=== PATIENT | female | born 1965 | race Caucasian/White ===

== ENCOUNTER 2017-01-05 21:04 | Emergency (ER) | payer OTHER ==
[~2017-01-05 21:04] MED LIST: ATIVAN0.5 MG PO; IBUPROFEN200 M1 PO; TOPROL XL50 MG PO
--- NOTE | 2017-01-05 22:03 | ED CLINICAL REPORT ---
Clinical Report - Physicians/Mid Levels [facility] [address] [place] [address] 01/05/2017 21:06 Patient: MIKEL ELIZALDE Time Seen: 21:52; initial patient contact, initial documentation, patient care assumed. Arrived- By private vehicle. Historian- patient. HISTORY OF PRESENT ILLNESS Chief Complaint: BACK PAIN and CHRONIC BACK PAIN. It is described as being severe and in the area of the right mid lumbar spine, right lower lumbar spine and right SI joint and radiating to the right hip and thigh. The quality is noted to be "pain" and similar to prior episodes. Onset- about 5 days ago and it is still present. Modifying factors- worsened by walking, rotation of the body to the right or left, bending over or lifting. Not relieved by anything. Additional history - has appt with pcp saturday completed pt about x2 mos ago. Patient denies an injury but injury to the head. No other injury. Similar symptoms previously: Chronically, as bad. REVIEW OF SYSTEMS No fever, difficulty with urination, urinary frequency, hematuria or difficulty breathing. No chest pain or abdominal pain. All systems otherwise negative, except as recorded above. PAST HISTORY See nurses notes. PROBLEMS: Chest Pain. Intervertebral Disc Disease. Back Pain. UTI - Urinary Tract Infection. --21:32 Lisbet Santana R.N. ADDITIONAL SURGERIES: Cholecystectomy. --21:32 Lisbet Santana R.N. SOCIAL HISTORY Never smoker. No alcohol use or drug use. No recent travel. Is a local resident. FAMILY HISTORY Negative. ADDITIONAL NOTES The nursing notes have been reviewed with agreement regarding the chief complaint, HPI, ROS, PMH and patient medications and allergies. PHYSICAL EXAM Vital Signs: 01/05/2017 21:28 BP: 131/72. HR: 83. RR: 18. O2 saturation: 97%. Temp: 98.2 F. Pain level now: 9/10. Have been reviewed as normal and appear to be correct. Appearance: Alert. No acute distress. HEENT: Normal external inspection. Eyes: Pupils equal, round and reactive to light. Neck: Normal inspection. Neck nontender. Painless ROM. CVS: Heart sounds normal. Pulses normal. Respiratory: No respiratory distress. Breath sounds normal. Abdomen: No visible injury. Soft and nontender. Back: Abnormal inspection. Back tenderness present. Mild soft tissue tenderness in the right mid and lower lumbar area. No painless ROM. Limited ROM in the back- in the lumbar spine: decreased flexion, right lateral bending, left lateral bending and rotation to the right and left. No limitation in extension of lumbar spine. No muscle spasm in the back, vertebral point tenderness or CVA tenderness. Skin: Skin warm and dry. Normal skin color. No rash. Normal skin turgor. Extremities: Extremities exhibit normal ROM. Extremities nontender. Neuro: Oriented X 3. Mood/affect normal. No motor deficit. No sensory deficit. LABS, X-RAYS, AND EKG Laboratory Tests: Normal. UA-Culture if indicated: (AYAD: 01/05/2017 21:20) ( MsgRcvd 01/05/2017 21:53) Final results Test Result Flag Units (Reference) URINE COLOR YELLOW URINE APPEARANCE CLEAR URINE GLUCOSE NEGATIVE (NEGATIVE) URINE BILIRUBIN NEGATIVE (NEGATIVE) URINE KETONE NEGATIVE (NEGATIVE) URINE SPECIFIC GRAVITY <= 1.005 L (1.010-1.030) URINE PH 6.0 (5.0-8.0) URINE PROTEIN NEGATIVE (NEGATIVE) URINE UROBILINOGEN 0.2 EU/dL (0.2-1.0) URINE NITRITE NEGATIVE (NEGATIVE) URINE BLOOD TRACE-INTACT (NEGATIVE) URINE LEUK ESTERASE NEGATIVE (NEGATIVE) URINE RBC 0-1 rbc/hpf (0-1) URINE WBC 0-1 wbc/hpf (0-1) URINE EPITHELIAL CELLS 10-15 EPI/hpf (0-5) URINE BACTERIA NONE SEEN (NONE SEEN) URINE COMMENT CULT NOT INDICATED URINE CULTURES ARE SET-UP BASED ON THE FOLLOWING CRITERIA:POSITIVE NITRITEPOSITIVE LEUKOCYTE ESTERASEGREATER THAN 10 WHITE BLOOD CELLSMODERATE (2+) OR GREATER BACTERIA . PROGRESS AND PROCEDURES Patient and spouse counseled in person regarding the patient's stable condition, test results, normal exam and diagnosis. 22:03. Differential Diagnosis: I considered Musculo-skeletal strain, retroperitoneal hematoma, disk protrusion, vertebral fracture, facet syndrome, sacroiliac joint strain, sciatica, osteoarthritis, lumbar spondylosis, spinal stenosis, ankylosing spondylitis, sacroiliac joint inflammation, pyelonephritis, meningioma, lymphoma, abdominal aortic aneurysm and ureterolithiasis as a possible cause of back pain in this patient. This is a partial list of diagnoses considered. Above considerations are based on history and physical exam. Differential diagnosis was discussed with patient and patient's spouse. Disposition: Discharged home in good and improved condition (22:03). Condition: good and stable. CLINICAL IMPRESSION Chronic nontraumatic lumbar back pain. Sciatica present on the right. No neurological deficit. INSTRUCTIONS Warnings: GENERAL WARNINGS: Return or contact your physician immediately if your condition worsens or changes unexpectedly, if not improving as expected, or if other problems arise. SPECIFICALLY, return if you develop numbness or incontinence of feces (loss of bowel control) or urine (loss of bladder control). Prescription Medications: Flexeril 10 mg: Take 1 orally every 8 hours as needed for muscle spasm. Dispense twenty (20). No refills. Substitution is permissible. Ultram 50 mg tablets: take 1-2 orally every 6 hours as needed for pain. Dispense twenty (20). No refills. Substitution is permissible. Follow-up: Follow up with your doctor Saturday as scheduled even if well. Summary of care provided to patient. Understanding of the discharge instructions verbalized by patient. (Electronically signed by Guerda Callejas A.R.N.P. 01/05/2017 22:22)
--- NOTE | 2017-01-05 22:03 | ED NURSING NOTES ---
Clinical Report - Nurses [facility] [address] [place] [address] 01/05/2017 21:06 Patient: MIKEL ELIZALDE TRIAGE Triage time 2118. Acuity: LEVEL 4. Chief Complaint: BACK PAIN and (has hx of sciatic pain, was in PT 6 months ago for it, was ok until 5 days ago). --21:32 Lisbet Santana R.N. 21:28 01/05/17. BP: 131/72. HR: 83. RR: 18. O2 saturation: 97% on room air. Temp: 98.2 F. Pain level now: 07/28. --21:32 Lisbet Santana R.N. Weight: 55.7 kg stated. Height/Length: 60 inches Per Patient. BMI: 24. --21:31 Lisbet Santana R.N. Medications None. --21:29 Lisbet Santana R.N. Allergies No Known Drug Allergy. --21:29 Lisbet Santana R.N. History Arrived by private vehicle. Historian: patient. Accompanied by spouse. --21:28 Lisbet Santana R.N. Arrived by private vehicle. Historian: patient. Accompanied by spouse. Primary physician ([facility]). Onset. (, but much worse since 1699 today. has appt with PCP on Saturday but "just can't wait that long"). She has had trouble walking. She has had extremity pain (rt leg). PAST MEDICAL HX: Last normal menstrual period- 10/09 kae menopausal. SOCIAL HX: Never smoker. No alcohol use or drug use. --21:32 Lisbet Santana R.N. ( has hx of sciatic pain). --21:33 Lisbet Santana R.N. PROBLEMS: Chest Pain. Intervertebral Disc Disease. Back Pain. UTI - Urinary Tract Infection. --21:32 Lisbet Santana R.N. ADDITIONAL SURGERIES: Cholecystectomy. --21:32 Lisbet Santana R.N. Interventions ID band on patient. To treatment room. --21:32 Lisbet Santana R.N. PHYSICAL ASSESSMENT 21:28. Ambulatory to room. Patient gowned. GENERAL / NEURO / PSYCH: Alert. Oriented X 4. Appears in pain. ( walking slowly and bent over). RESPIRATORY: Respirations not labored. CVS: Capillary refill less than 2 seconds. GI / : Abdomen soft. BACK: Limited ROM of the back. Soft tissue tenderness. --22:19 Lisbet Santana R.N. NURSING PROGRESS NOTES 21:22 01/05/17. Patient gowned. Head of bed elevated. Reassurance given. Patient identifiers checked. Call light placed in reach. Side rails up. Bed placed in lowest position. Patient ready for evaluation- chart flagged. --21: Lisbet Santana R.N. 21:24 01/05/17. Patient ID band checked for patient name and birthdate: patient confirmed. Clean catch urine collected with return of yellow-colored cloudy urine; sample sent to lab for urinalysis and culture. Specimen labeled in the presence of the patient. --21:25 Lisbet Santana R.N. 22:05 01/05/2017 Toradol (Ketorolac Tromethamine) IM 30 mg given. Given in the right ventral gluteus. --22:18 Lisbet Santana R.N. DISPOSITION / DISCHARGE 22:01/05/17. Condition at departure: unchanged and stable. No learning barriers present. Discharge instructions provided and reviewed with the patient and spouse. Reviewed medication(s) (flexeril, ultram). Patient and spouse verbalized understanding. Written instructions provided in Thai. The patient was discharged home and accompanied by spouse. She left the Emergency Department in a wheelchair and via private vehicle. Spouse driving. --22: Lisbet Santana R.N. 22:15 01/05/17. BP: 128/78. HR: 84. RR: 18. O2 saturation: 99% on room air. Temp: deferred. Pain level now: 9/10. Additional comments: pt opted to leave before meds took effect. --22:17 Lisbet Santana R.N. Locked/Released at 01/15/2017 9:00 by Ema Pardo R.N.
--- NOTE | 2017-01-05 22:03 | ED ORDER SUMMARY ---
..... Patient: MIKEL ELIZALDE OrderSheet [facility] VisitID: [id number] [address] [place] [address] 51y, F Registration Date/Time: 01/05/2017 ORDER SHEET Weight: 55.7 kg (stated) Allergies: No Known Drug Allergy GENERAL ORDERS: UA-Culture if indicated Urgent (21:41 01/05/2017 DDean R.N. per protocol) (Ack 21:43 Radha) (21:57 DDean R.N.) MEDICATION ORDERS: Toradol IM 60 mg (NOW) (22:01 01/05/2017 HBivens A.R.N.P.) (Ack 22:03 DDean R.N.) (22:18 DDean R.N.) IV FLUIDS: ORDER SHEET NOTES: [Electronically signed by Guerda Callejas A.R.N.P. (22:22 01/05/2017)] [Electronically signed by Ema Pardo R.N. (09:00 01/15/2017)] [Electronically locked/signed by Ema Pardo R.N. (09:00 01/15/2017)]
--- NOTE | 2017-01-05 22:03 | ED NURSING NOTES ---
Clinical Report - Nurses [facility] [address] [place] [address] 01/05/2017 21:06 Patient: MIKEL ELIZALDE TRIAGE Triage time 2118. Acuity: LEVEL 4. Chief Complaint: BACK PAIN and (has hx of sciatic pain, was in PT 6 months ago for it, was ok until 5 days ago). --21:32 Lisbet Santana R.N. 21:28 01/05/17. BP: 131/72. HR: 83. RR: 18. O2 saturation: 97% on room air. Temp: 98.2 F. Pain level now: 07/28. --21:32 Lisbet Santana R.N. Weight: 55.7 kg stated. Height/Length: 60 inches Per Patient. BMI: 24. --21:31 Lisbet Santana R.N. Medications None. --21:29 Lisbet Santana R.N. Allergies No Known Drug Allergy. --21:29 Lisbet Santana R.N. History Arrived by private vehicle. Historian: patient. Accompanied by spouse. --21:28 Lisbet Santana R.N. Arrived by private vehicle. Historian: patient. Accompanied by spouse. Primary physician ([facility]). Onset. (, but much worse since 1699 today. has appt with PCP on Saturday but "just can't wait that long"). She has had trouble walking. She has had extremity pain (rt leg). PAST MEDICAL HX: Last normal menstrual period- 10/09 kae menopausal. SOCIAL HX: Never smoker. No alcohol use or drug use. --21:32 Lisbet Santana R.N. ( has hx of sciatic pain). --21:33 Lisbet Santana R.N. PROBLEMS: Chest Pain. Intervertebral Disc Disease. Back Pain. UTI - Urinary Tract Infection. --21:32 Lisbet Santana R.N. ADDITIONAL SURGERIES: Cholecystectomy. --21:32 Lisbet Santana R.N. Interventions ID band on patient. To treatment room. --21:32 Lisbet Santana R.N. PHYSICAL ASSESSMENT 21:28. Ambulatory to room. Patient gowned. GENERAL / NEURO / PSYCH: Alert. Oriented X 4. Appears in pain. ( walking slowly and bent over). RESPIRATORY: Respirations not labored. CVS: Capillary refill less than 2 seconds. GI / : Abdomen soft. BACK: Limited ROM of the back. Soft tissue tenderness. --22:19 Lisbet Santana R.N. NURSING PROGRESS NOTES 21:22 01/05/17. Patient gowned. Head of bed elevated. Reassurance given. Patient identifiers checked. Call light placed in reach. Side rails up. Bed placed in lowest position. Patient ready for evaluation- chart flagged. --21: Lisbet Santana R.N. 21:24 01/05/17. Patient ID band checked for patient name and birthdate: patient confirmed. Clean catch urine collected with return of yellow-colored cloudy urine; sample sent to lab for urinalysis and culture. Specimen labeled in the presence of the patient. --21:25 Lisbet Santana R.N. 22:05 01/05/2017 Toradol (Ketorolac Tromethamine) IM 30 mg given. Given in the right ventral gluteus. --22:18 Lisbet Santana R.N. DISPOSITION / DISCHARGE 22:01/05/17. Condition at departure: unchanged and stable. No learning barriers present. Discharge instructions provided and reviewed with the patient and spouse. Reviewed medication(s) (flexeril, ultram). Patient and spouse verbalized understanding. Written instructions provided in Ukrainian. The patient was discharged home and accompanied by spouse. She left the Emergency Department in a wheelchair and via private vehicle. Spouse driving. --22: Lisbet Santana R.N. 22:15 01/05/17. BP: 128/78. HR: 84. RR: 18. O2 saturation: 99% on room air. Temp: deferred. Pain level now: 9/10. Additional comments: pt opted to leave before meds took effect. --22:17 Lisbet Santana R.N. Locked/Released at 01/15/2017 9:00 by Ema Pardo R.N.
--- NOTE | 2017-01-05 22:03 | ED ORDER SUMMARY ---
..... Patient: MIKEL ELIZALDE OrderSheet [facility] VisitID: [id number] [address] [place] [address] 51y, F Registration Date/Time: 01/05/2017 ORDER SHEET Weight: 55.7 kg (stated) Allergies: No Known Drug Allergy GENERAL ORDERS: UA-Culture if indicated Urgent (21:41 01/05/2017 DDean R.N. per protocol) (Ack 21:43 Radha) (21:57 DDean R.N.) MEDICATION ORDERS: Toradol IM 60 mg (NOW) (22:01 01/05/2017 HBivens A.R.N.P.) (Ack 22:03 DDean R.N.) (22:18 DDean R.N.) IV FLUIDS: ORDER SHEET NOTES: [Electronically signed by Guerda Callejas A.R.N.P. (22:22 01/05/2017)] [Electronically signed by Ema Pardo R.N. (09:00 01/15/2017)] [Electronically locked/signed by Ema Pardo R.N. (09:00 01/15/2017)]
--- NOTE | 2017-01-15 09:00 | ED MAR SUMMARY ---
..... Medication Administration Record [facility] [address] [place] [address] Patient: MIKEL ELIZALDE Visit ID: [id number] 51y, F Weight: 55.7 kg Height/Length: 60 in BMI: 24 ALLERGIES: No Known Drug Allergy Given 22:05 01/05/2017 MaxLisbet R.N. Medication Administered: TORADOL [IM] (KETOROLAC TROMETHAMINE), Dose: 30 mg IM. Medication Ordered: Toradol IM 60 mg (NOW).
--- NOTE | 2017-01-15 09:00 | ED MED RECONCILIATION SUMMARY ---
Patient: MIKEL ELIZALDE Medication Reconciliation Report [facility] VisitID: [id number] [address] [place] [address] 51y, F Registration Date/Time: 01/05/2017 Weight: 55.7 kg Height/Length: 60 in. BMI: 24.0 ALLERGIES: No Known Drug Allergy The patient's Home Medications are listed below: NONE. The source(s) of the original Home Medication information: Not obtained. The following Medications were given to the patient in the Emergency Department: Toradol [IM] IM 30 mg, administered: 01/05/2017 10:05:00 PM The following Medications were prescribed to the patient: Flexeril 10 mg: Take 1 orally every 8 hours as needed for muscle spasm. Dispense twenty (20). No refills. Substitution is permissible. -- Guerda Callejas, A.R.N.P. Ultram 50 mg tablets: take 1-2 orally every 6 hours as needed for pain. Dispense twenty (20). No refills. Substitution is permissible. -- Guerda Callejas, A.R.N.P.
--- NOTE | 2017-01-15 09:00 | ED DISCHARGE INSTRUCTIONS ---
Patient: MIKEL ELIZALDE General Instructions [facility] VisitID: [id number] [address] [place] [address] 51y, F Registration Date/Time: 01/05/2017 Chronic nontraumatic lumbar back pain. Sciatica present on the right. No neurological deficit. INSTRUCTIONS Warnings: GENERAL WARNINGS: Return or contact your physician immediately if your condition worsens or changes unexpectedly, if not improving as expected, or if other problems arise. SPECIFICALLY, return if you develop numbness or incontinence of feces (loss of bowel control) or urine (loss of bladder control). Prescription Medications: Flexeril 10 mg: Take 1 orally every 8 hours as needed for muscle spasm. Dispense twenty (20). No refills. Substitution is permissible. Ultram 50 mg tablets: take 1-2 orally every 6 hours as needed for pain. Dispense twenty (20). No refills. Substitution is permissible. Follow-up: Follow up with your doctor Saturday as scheduled even if well. Summary of care provided to patient. Understanding of the discharge instructions verbalized by patient. ADDITIONAL INFORMATION Back Pain [Acute Or Chronic] Back pain is usually caused by an injury to the muscles or ligaments of the spine. Sometimes the disks that separate each bone in the spine may bulge and cause pain by pressing on a nearby nerve. Back pain may also appear after a sudden twisting/bending force (such as in a car accident), after a simple awkward movement, or lifting something heavy with poor body positioning. In either case, muscle spasm is often present and adds to the pain. Acute back pain usually gets better in one to two weeks. Back pain related to disk disease, arthritis in the spinal joints or spinal stenosis (narrowing of the spinal canal) can become chronic and last for months or years. Unless you had a physical injury (for example, a car accident or fall) X-rays are usually not ordered for the initial evaluation of back pain. If pain continues and does not respond to medical treatment, x-rays and other tests may be performed at a later time. Home Care: You may need to stay in bed the first few days. But, as soon as possible, begin sitting or walking to avoid problems with prolonged bed rest (muscle weakness, worsening back stiffness and pain, blood clots in the legs). When in bed, try to find a position of comfort. A firm mattress is best. Try lying flat on your back with pillows under your knees. You can also try lying on your side with your knees bent up towards your chest and a pillow between your knees. Avoid prolonged sitting. This puts more stress on the lower back than standing or walking. During the first two days after injury, apply an ICE PACK to the painful area for 20 minutes every 2-4 hours. This will reduce swelling and pain. HEAT (hot shower, hot bath or heating pad) works well for muscle spasm. You can start with ice, then switch to heat after two days. Some patients feel best alternating ice and heat treatments. Use the one method that feels the best to you. You may use acetaminophen (Tylenol) or ibuprofen (Motrin, Advil) to control pain, unless another pain medicine was prescribed. [NOTE: If you have chronic liver or kidney disease or ever had a stomach ulcer or GI bleeding, talk with your doctor before using these medicines.] Be aware of safe lifting methods and do not lift anything over 15 pounds until all the pain is gone. Follow Up with your doctor or this facility if your symptoms do not start to improve after one week. Physical therapy may be needed. [NOTE: If X-rays were taken, they will be reviewed by a radiologist. You will be notified of any new findings that may affect your care.] Get Prompt Medical Attention if any of the following occur: Pain becomes worse or spreads to your legs Weakness or numbness in one or both legs Loss of bowel or bladder control Numbness in the groin or genital area Sciatica Sciatica ("Lumbar Radiculopathy") causes a pain that spreads from the lower back down into the buttock, hip and leg. Sometimes leg pain can occur without any back pain. Sciatica is due to irritation or pressure on a spinal nerve as it comes out of the spinal canal. This is most often due to a bulge or rupture of a nearby spinal disk (the cartilage cushion between each spinal bone), which presses on a nearby nerve. Other causes include spinal stenosis (narrowing of the spinal canal) and spasm of the pyriform muscle (a muscle in the buttocks that the sciatic nerve passes through). Sciatica may begin after a sudden twisting/bending force (such as in a car accident), or sometimes after a simple awkward movement. In either case, muscle spasm is commonly present and contributes to the pain. The diagnosis of sciatica is made from the symptoms and physical exam. Unless you had a physical injury (such as a car accident or fall), X-rays are usually not ordered for the initial evaluation of sciatica because the nerves and disks cannot be seen on an x-ray. If signs of a compressed nerve are present (for example, loss of tendon reflex or strength in the leg), an MRI (magnetic resonance imaging) scan will need to be scheduled as an outpatient. Most sciatica (80-90%) gets better with medicine, exercise, physical therapy. If symptoms continue after at least three months of medical treatment, surgery may be considered. Home Care: You may need to stay in bed the first few days. But, as soon as possible, begin sitting or walking to avoid problems with prolonged bed rest. When in bed, try to find a position of comfort. A firm mattress is best. Try lying flat on your back with pillows under your knees. You can also try lying on your side with your knees bent up towards your chest and a pillow between your knees. Avoid prolonged sitting. This puts more stress on the lower back than standing or walking. Some persons find relief with heat (hot shower, hot bath or heating pad) and massage, while others prefer cold packs (crushed or cubed ice in a plastic bag, wrapped in a towel). Try both and use the method that feels best for 20 minutes several times a day. You may use acetaminophen (Tylenol) or ibuprofen (Motrin, Advil) to control pain, unless another pain medicine was prescribed. [ NOTE: If you have chronic liver or kidney disease or ever had a stomach ulcer or GI bleeding, talk with your doctor before using these medicines.] Be aware of safe lifting methods and do not lift anything over 15 pounds until all the pain is gone. Follow Up with your doctor or this facility if your symptoms do not start to improve after one week. Physical therapy or further testing may be needed. [NOTE: If X-rays were taken, they will be reviewed by a radiologist. You will be notified of any new findings that may affect your care.] Get Prompt Medical Attention if any of the following occur: Pain becomes worse, not controlled by the prescribed medicine Weakness or numbness in one or both legs Numbness in the groin, genital area Loss of bowel or bladder control Cyclobenzaprine Hydrochloride Oral tablet What is this medicine? CYCLOBENZAPRINE (gilbert taylor) is a muscle relaxer. It is used to treat muscle pain, spasms, and stiffness. How should I use this medicine? Take this medicine by mouth with a glass of water. Follow the directions on the prescription label. If this medicine upsets your stomach, take it with food or milk. Take your medicine at regular intervals. Do not take it more often than directed. Talk to your global marketing coordinator regarding the use of this medicine in children. Special care may be needed. What side effects may I notice from receiving this medicine? Side effects that you should report to your doctor or health coronary care unit nurse as soon as possible: allergic reactions like skin rash, itching or hives, swelling of the face, lips, or tongue chest pain fast heartbeat hallucinations seizures vomiting Side effects that usually do not require medical attention (report to your doctor or health coronary care unit nurse if they continue or are bothersome): headache What may interact with this medicine? Do not take this medicine with any of the following medications: cisapride droperidol flecainide grepafloxacin halofantrine levomethadyl MAOIs like Carbex, Eldepryl, Marplan, Nardil, and Parnate nilotinib pimozide probucol sertindole This medicine may also interact with the following medications: abarelix alcohol contrast dyes dolasetron guanethidine medicines for cancer medicines for depression, anxiety, or psychotic disturbances medicines to treat an irregular heartbeat medicines used for sleep or numbness during surgery or procedure methadone octreotide ondansetron palonosetron phenothiazines like chlorpromazine, mesoridazine, prochlorperazine, thioridazine some medicines for infection like alfuzosin, chloroquine, clarithromycin, levofloxacin, mefloquine, pentamidine, troleandomycin tramadol vardenafil What if I miss a dose? If you miss a dose, take it as soon as you can. If it is almost time for your next dose, take only that dose. Do not take double or extra doses. Where should I keep my medicine? Keep out of the reach of children. Store at room temperature between 15 and 30 degrees C (59 and 86 degrees F). Keep container tightly closed. Throw away any unused medicine after the expiration date. What should I tell my health care provider before I take this medicine? They need to know if you have any of these conditions: heart disease, irregular heartbeat, or previous heart attack liver disease thyroid problem an unusual or allergic reaction to cyclobenzaprine, tricyclic antidepressants, lactose, other medicines, foods, dyes, or preservatives or trying to get breast-feeding What should I watch for while using this medicine? Check with your doctor or health coronary care unit nurse if your condition does not improve within 1 to 3 weeks. You may get drowsy or dizzy when you first start taking the medicine or change doses. Do not drive, use machinery, or do anything that may be dangerous until you know how the medicine affects you. Stand or sit up slowly. Your mouth may get dry. Drinking water, chewing sugarless gum, or sucking on hard candy may help. Tramadol Hydrochloride Oral tablet What is this medicine? TRAMADOL (TRA ma dole) is a pain reliever. It is used to treat moderate to severe pain in adults. How should I use this medicine? Take this medicine by mouth with a full glass of water. Follow the directions on the prescription label. If the medicine upsets your stomach, take it with food or milk. Do not take more medicine than you are told to take. Talk to your global marketing coordinator regarding the use of this medicine in children. Special care may be needed. What side effects may I notice from receiving this medicine? Side effects that you should report to your doctor or health coronary care unit nurse as soon as possible: allergic reactions like skin rash, itching or hives, swelling of the face, lips, or tongue breathing difficulties, wheezing confusion itching light headedness or fainting spells redness, blistering, peeling or loosening of the skin, including inside the mouth seizures Side effects that usually do not require medical attention (report to your doctor or health coronary care unit nurse if they continue or are bothersome): constipation dizziness drowsiness headache nausea, vomiting What may interact with this medicine? Do not take this medicine with any of the following medications: MAOIs like Carbex, Eldepryl, Marplan, Nardil, and Parnate This medicine may also interact with the following medications: alcohol or medicines that contain alcohol antihistamines benzodiazepines bupropion carbamazepine or oxcarbazepine clozapine cyclobenzaprine digoxin furazolidone linezolid medicines for depression, anxiety, or psychotic disturbances medicines for migraine headache like almotriptan, eletriptan, frovatriptan, naratriptan, rizatriptan, sumatriptan, zolmitriptan medicines for pain like pentazocine, buprenorphine, butorphanol, meperidine, nalbuphine, and propoxyphene medicines for sleep muscle relaxants naltrexone phenobarbital phenothiazines like perphenazine, thioridazine, chlorpromazine, mesoridazine, fluphenazine, prochlorperazine, promazine, and trifluoperazine procarbazine warfarin What if I miss a dose? If you miss a dose, take it as soon as you can. If it is almost time for your next dose, take only that dose. Do not take double or extra doses. Where should I keep my medicine? Keep out of the reach of children. Store at room temperature between 15 and 30 degrees C (59 and 86 degrees F). Keep container tightly closed. Throw away any unused medicine after the expiration date. What should I tell my health care provider before I take this medicine? They need to know if you have any of these conditions: brain tumor depression drug abuse or addiction head injury if you frequently drink alcohol containing drinks kidney disease or trouble passing urine liver disease lung disease, asthma, or breathing problems seizures or epilepsy suicidal thoughts, plans, or attempt; a previous suicide attempt by you or a family member an unusual or allergic reaction to tramadol, codeine, other medicines, foods, dyes, or preservatives or trying to get breast-feeding What should I watch for while using this medicine? Tell your doctor or health coronary care unit nurse if your pain does not go away, if it gets worse, or if you have new or a different type of pain. You may develop tolerance to the medicine. Tolerance means that you will need a higher dose of the medicine for pain relief. Tolerance is normal and is expected if you take this medicine for a long time. Do not suddenly stop taking your medicine because you may develop a severe reaction. Your body becomes used to the medicine. This does NOT mean you are addicted. Addiction is a behavior related to getting and using a drug for a non-medical reason. If you have pain, you have a medical reason to take pain medicine. Your doctor will tell you how much medicine to take. If your doctor wants you to stop the medicine, the dose will be slowly lowered over time to avoid any side effects. You may get drowsy or dizzy. Do not drive, use machinery, or do anything that needs mental alertness until you know how this medicine affects you. Do not stand or sit up quickly, especially if you are an older patient. This reduces the risk of dizzy or fainting spells. Alcohol can increase or decrease the effects of this medicine. Avoid alcoholic drinks. You may have constipation. Try to have a bowel movement at least every 2 to 3 days. If you do not have a bowel movement for 3 days, call your doctor or health coronary care unit nurse. Your mouth may get dry. Chewing sugarless gum or sucking hard candy, and drinking plenty of water may help. Contact your doctor if the problem does not go away or is severe. You have been given the following additional information: Back Pain (Acute Or Chronic) Back Pain W/ Sciatica Cyclobenzaprine Hydrochloride Oral tablet Tramadol Hydrochloride Oral tablet (Electronically signed by Guerda Callejas A.R.N.P. 01/05/2017 22:22)
--- NOTE | 2017-01-15 09:00 | ED MAR SUMMARY ---
..... Medication Administration Record [facility] [address] [place] [address] Patient: MIKEL ELIZALDE Visit ID: [id number] 51y, F Weight: 55.7 kg Height/Length: 60 in BMI: 24 ALLERGIES: No Known Drug Allergy Given 22:05 01/05/2017 MaxLisbet R.N. Medication Administered: TORADOL [IM] (KETOROLAC TROMETHAMINE), Dose: 30 mg IM. Medication Ordered: Toradol IM 60 mg (NOW).
--- NOTE | 2017-01-15 09:00 | ED MED RECONCILIATION SUMMARY ---
Patient: MIKEL ELIZALDE Medication Reconciliation Report Merged With [facility] VisitID: [id number] [address] [place] [address] 51y, F Registration Date/Time: 01/05/2017 Weight: 55.7 kg Height/Length: 60 in. BMI: 24.0 ALLERGIES: No Known Drug Allergy The patient's Home Medications are listed below: NONE. The source(s) of the original Home Medication information: Not obtained. The following Medications were given to the patient in the Emergency Department: Toradol [IM] IM 30 mg, administered: 01/05/2017 10:05:00 PM The following Medications were prescribed to the patient: Flexeril 10 mg: Take 1 orally every 8 hours as needed for muscle spasm. Dispense twenty (20). No refills. Substitution is permissible. -- Guerda Callejas, A.R.N.P. Ultram 50 mg tablets: take 1-2 orally every 6 hours as needed for pain. Dispense twenty (20). No refills. Substitution is permissible. -- Guerda Callejas, A.R.N.P.
== END 2017-01-05 22:15 | disposition home or self-care (01) ==
LOC: ED SRH 21:04
DX: M54.41 Lumbago with sciatica, right side (principal); G89.29 Other chronic pain
CPT/HCPCS: 90004